=== PATIENT | male | born 1965 | race Caucasian/White ===

== ENCOUNTER 2019-06-21 11:53 | Emergency (ER) | payer OTHER ==
[~2019-06-21] VITALS: Ht 170.2 cm; Wt 75.3 kg
--- NOTE | 2019-06-21 11:55 | NUR ---
CAME IN FOR WORSENING LOW BACK PAIN SINCE HE HAD A GLF 2 DAYS AGO. TO ER BED 9, HOOKED TO MONITOR, CHANGED TO GOWN, PROVIDED W WARM BLANKET, AWAITING MD VANG.
--- NOTE | 2019-06-21 12:08 | NUR ---
DR RIVAS AT BEDSIDE
--- NOTE | 2019-06-21 12:35 | NUR ---
BAR HELPER AT BEDSIDE
[2019-06-21] MEDS ORDERED: DIAZEPAM 10 MG TABLET PO ONE (13:00)
[2019-06-21] MEDS ORDERED: IV NS 0.9% 1,000 ML BAG IV ONE (13:00)
[2019-06-21] MEDS ORDERED: KETOROLAC TROMETHAMINE INJ 30 MG/ML VIAL IV ONE (13:00)
[2019-06-21] MEDS ORDERED: KETOROLAC TROMETHAMINE INJ 30 MG/ML VIAL ONE (13:06)
[2019-06-21] MEDS ORDERED: DIAZEPAM 5 MG TABLET ONE (13:06)
[2019-06-21 13:10] LABS: BASOPHILS % (AUTO) 0.2 % (0.0-2.0); HEMATOCRIT 42 % (39-51); HEMOGLOBIN 14.1 g/dL (13.5-17.5); LYMPHOCYTES # (AUTO) 1.4 /CMM (0.8-4.8); LYMPHOCYTES % (AUTO) 28.9 % (20.0-44.0); MEAN CORPUSCULAR HGB CONC 34 g/dl (31.0-36.0); MEAN CORPUSCULAR VOLUME 92 fL (80-96); MONOCYTES # (AUTO) 0.4 /CMM (0.1-1.30); MONOCYTES % (AUTO) 9.4 % (2.0-12.0); NEUTROPHILS # (AUTO) 2.8 /CMM (1.8-8.9); NEUTROPHILS % (AUTO) 58.5 % (43.0-81.0); PLATELET COUNT (AUTO) 231 /CMM (150-450); RED BLOOD CELL COUNT(AUTO) 4.57 MIL/uL (4.5-6.0); WHITE BLOOD COUNT (AUTO) 4.7 K/uL (4.3-11.0)
[2019-06-21 13:16] LABS: CALCIUM, SERUM 8.8 mg/dL (8.5-10.1); CREATININE 0.7 mg/dL (0.6-1.3); POTASSIUM 4.3 mmol/L (3.5-5.1)
--- NOTE | 2019-06-21 13:17 | NUR ---
WHEELED OUT VIA GURNEY FOR CT SCAN OF PELVIS/ABDOMEN
[2019-06-21 13:21] LABS: ALBUMIN 3.6 g/dL (3.4-5.0); BILIRUBIN,DIRECT 0.1 mg/dL (0.0-0.2); BILIRUBIN,TOTAL 0.6 mg/dL (0.2-1.0)
[2019-06-21] MEDS ORDERED: HYDROCODONE/APAP 5/325MG 1 EACH TABLET ONE (14:42)
[2019-06-21] MEDS ORDERED: HYDROCODONE/APAP 5/325MG 1 EACH TABLET PO ONE (15:00)
--- NOTE | 2019-06-21 15:06 | NUR ---
IV removed. Catheter intact and site benign. Pressure and 4x4 applied to site. No bleeding noted.Patient discharged to home in stable condition. Written and verbal after care instructions given. Patient verbalizes understanding of instruction.
[2019-06-21 15:53] VITALS: BP 122/74
== END 2019-06-21 15:10 | disposition home or self-care (01) ==
LOC: ER 11:53
DX: M54.41 Lumbago with sciatica, right side (principal)
CPT/HCPCS: 36415; 71045; 72100; 74176; 80048; 80076; 85025; 96374; 99284; J1885; J7030